=== PATIENT | female | born 1960 | race Caucasian/White ===

== ENCOUNTER 2024-08-04 18:12 | Emergency (ER) | payer MEDICAID, SELFPAY ==
[2024-08-04 18:36] VITALS: BP 126/79; PULSE 96; RESP 20; TEMP 37.9; O2SAT 94; BMI 21.0
--- NOTE | 2024-08-04 19:01 | XR_ITS ---
Examination: CT abdomen with intravenous contrast CT pelvis with intravenous contrast 2-D coronal reconstructions 2-D sagittal reconstructions Date and time of exam:August 04, 20241 hours INDICATIONS: Lower abdominal pain with blood in the stool today and beginning 6 days ago. CTDI: vol (mGy) 6.58 DLP: (mGycm) 333 Technique: Multiple axial sections of the abdomen and pelvis have been obtained. 64 slice high-resolution scanner used. 3 mm axial sections have been obtained, post intravenous injection of 60 cc of [id number] 2-D sagittal, coronal reconstructions obtained. Low dose protocols were performed. One or more of the following dose reduction techniques were used; automated exposure control, adjustment of the mA and/or KV according to patient size, use of iterative reconstruction technique. Findings: No focal liver or splenic lesions Absent gallbladder No pancreatic mass No renal or ureteral calculi, no hydronephrosis Abdominal aortic calcification no aneurysmal dilatation No pericecal inflammatory change No bowel obstruction No diverticulitis There is mild diffuse wall thickening involving the colon with rectal wall thickening Urinary bladder shows wall thickening The osseous structures are intact No pelvic mass IMPRESSION: Diffuse nonspecific colitis pattern, consider ulcerative colitis, Crohn's disease Proctitis pattern
--- NOTE | 2024-08-04 19:02 | EDRME_ITS ---
Rapid Medical Screening Exam [facility] Arrival date/time: 08/04/24 18:12 63F with history of COPD presents to ED with several days of lower ab pain and blood in stool. Patient was at [facility] recently with neg flu/COVID. Patient denies CP and URI symptoms. Chief Complaint: Nausea/Vomiting/Diarrhea Vital signs: Vital Signs Temperature 100.3 F 08/04/24 18:36 Pulse Rate 96 08/04/24 18:36 Respiratory Rate 20 08/04/24 18:36 Blood Pressure 126/79 08/04/24 18:36 Pulse Oximetry (%) 94 L 08/04/24 18:36 Oxygen Delivery Method Room Air 08/04/24 18:36
[2024-08-04 19:37] LABS: Collection Type, Urine Clean Catch; Squamous Epithelial Cell,Urine 0 /hpf (0-5); WBC,Urine 0 /hpf (0-5)
[2024-08-04 19:38] LABS: Lactate (Lactic Acid) 1.1 mMol/L (0.4-2.0)
[2024-08-04 19:41] LABS: Basophils % (Auto) 0 % (0-2.5); Eosinophils % (Auto) 0 % (0-10); Hematocrit 42.5 % (36.0-46.0); Hemoglobin 14.6 g/dL (12.0-16.0); Immature Granulocytes % (Auto) 0 % (0-0); Immature Granulocytes Auto 0.02 Thou/mm3 (0.00-0.00); Lymphocytes % (Auto) 25 % (10-50); Mean Corpuscular HGB Conc 34.4 g/dl (31.0-37.0); Mean Corpuscular Hemoglobin 32.2 pg (25.0-35.0); Mean Corpuscular Volume 94 fL (80-100); Monocytes # (Auto) 0.7 Thou/mm3 (0.0-0.8); Monocytes % (Auto) 9 % (0-12); Neutrophils # (Auto) 5.3 Thou/mm3 (1.8-7.7); Neutrophils % (Auto) 66 % (37-80); Nucleated Red Blood Cell % 0 /100 WBC (0); Platelet Count 244 Thou/mm3 (140-440); RDW Standard Deviation 45.7 fL (36.4-46.3); Red Blood Count 4.53 Miln/mm3 (4.00-5.20)
[2024-08-04 19:52] LABS: Bacteria,Urine Rare; Bilirubin,Urine Negative (Negative); Blood,Urine 1+ (Negative); Clarity,Urine Clear (Clear/Hazy); Color,Urine Yellow (Lt Yel-Yel); Glucose, Urine Negative (Negative); Ketones,Urine 2+ (Negative); Leukocyte Esterase,Urine Negative (Negative); Nitrite,Urine Negative (Negative); Protein,Urine 1+ (Neg - Trace); RBC,Urine 5 /hpf (0-3); Specific Gravity,Urine 1.027 (1.001-1.035); Urobilinogen,Urine Negative mg/dL (0.0-1.0)
[2024-08-04 20:07] LABS: Alanine Aminotransferase 16 U/L (10-49); Albumin, Serum 4.6 gm/dL (3.4-4.8); Albumin/Globulin Ratio 1.7 (1.2-2.2); Alkaline Phosphatase 71 U/L (46-116); Anion Gap 8 (7-16); Aspartate Amino Transferase 20 U/L (0-34); BUN/Creatinine Ratio 13 Ratio (12-20); Bilirubin,Total 0.3 mg/dL (0.3-1.2); Blood Urea Nitrogen 10 mg/dL (9-23); Calcium 9.4 mg/dL (8.3-10.6); Calcium (Corrected) 9.4 mg/dL (8.5-10.1); Carbon Dioxide 25.1 mMol/L (20.0-31.0); Chloride 100 mMol/L (98-107); Creatinine (Component) 0.8 mg/dL (0.6-1.3); Estimated Creatinine Clearance 58.4 mL/min (>60); Globulin 2.7 gm/dL (2.3-3.5); Glucose 102 mg/dL (74-106); Lipase 62 U/L (12-53); Osmolality,Calculated 265 (275-295); Potassium 4.1 mMol/L (3.4-5.1); Procalcitonin 0.08 ng/ml (0.0-0.49); Sodium 133 mMol/L (136-145); Total Protein 7.3 gm/dL (5.7-8.2); eGFR > 60 See Note
[2024-08-04 20:18] LABS: Amphetamine/Methamp Scrn,U Negative (Negative); Barbiturate Screen,Urine Negative (Negative); Benzodiazepines Screen,Urine Negative (Negative); Benzoylecgonine Screen, Ur Negative (Negative); Fentanyl Screen,Urine Negative (Negative); Opiate Screen,Urine Negative (Negative); THC Screen,Urine Positive (Negative)
--- NOTE | 2024-08-04 22:19 | EDNOTE_ITS ---
Nausea/Vomit./Diarrhea-RME/HPI General Chief complaint: Nausea/Vomiting/Diarrhea Stated complaint: Vomiting, blood in stool, [place] Arrival date/time: 08/04/24 18:12 RME / HPI RME / HPI Narrative: 08/04/24 18:12 63F with history of COPD presents to ED with several days of lower ab pain and blood in stool. Patient was at [facility] recently with neg flu/COVID. Patient denies CP and URI symptoms. ----- Dr. Pompa?s Main ED Evaluation: 63yo female presents to the ED for complaints of N/V and bloody stools. Patient states she's had persistent N/V for the last 6-7 days and has been constipated. She self-administered an enema, reporting afterwards she noticed she had bloody stools. She reports associated fevers and night sweats. She denies any abdominal pain or any other associated symptoms. She was seen at [facility] 1 week ago for similar symptoms. PSH includes hysterectomy and cholecystectomy. Denies any history of DM. She does smoke marijuana. Related Data Home Medications ?Medication ?Instructions ?Recorded ?Confirmed albuterol sulfate 90 mcg/actuation 2 puff inhalation Q ID ##18 04/15/17 09/03/19 aerosol inhaler (Ventolin HFA) atorvastatin 80 mg tablet 80 mg PO QDAY ##30 04/15/17 09/03/19 carvedilol 3.125 mg tablet (Coreg) 3.125 mg PO BID #0 tabs 04/15/17 09/03/19 clopidogrel 75 mg tablet (Plavix) 75 mg PO QDAY #0 tab s 04/15/17 09/03/19 isosorbide mononitrate 120 mg 120 mg PO QDAY ##0 04/1509/03/19 tablet,extended release 24 hr (Isosorbide Mononitrate ER) Previous Rx's ?Medication ?Instructions ?Recorded acetaminophen 650 mg 650 mg PO Q8H #60 tabs 08/09 tablet,extended release ibuprofen 600 mg tablet 600 mg PO Q6H #60 tabs 08/09 pantoprazole 40 mg tablet,delayed 40 mg PO QDAY #20 ta bs 08/25/23 release (Protonix) prednisone 50 mg tablet 50 mg PO QDAY #7 tabs ciprofloxacin HCl 500 mg tablet 500 mg PO BID 10 days #20 tabs 08/04/24 (Cipro) ondansetron 4 mg disintegrating 4 mg PO Q6H PRN nausea and 08/04/24 tablet vomiting #14 tabs Allergies Allergy/AdvReac Type Severity Reaction Status Date / Time adhesive tape Allergy Unknown Verified 08/25/23 12:51 Review of Systems Review of Systems Systems Reviewed: All systems reviewed, normal except as documented Narrative Review of Systems: Gen: + fever, no chills, no weight loss, + sweating EYES: No discharge, no visual changes, no pain HEENT: No ear pain, no congestion, no sore throat PULM: No shortness of breath, no cough, no congestion CV: No chest pain, no dyspnea on exertion, no palpitations GI: + nausea, + vomiting, no diarrhea, no pain, + constipation, + bloody stools : No frequency, no urgency, no dysuria Musc/skel: No joint pain, no back pain Skin: No rash. Warm and dry. Psyc: No hallucinations, no depression Heme/Lymph: No easy bleeding or bruising tendencies Neuro: No weakness, no headache Past Medical History Past Medical History CARDIAC: Positive Cardiac Disorders RESPIRATORY: Positive Asthma GENITOURINARY: Negative Renal Disease ENDOCRINE: Negative Diabetes Mellitus Type 2 HEMATOLOGIC: Negative Sickle Cell Disease Social History SMOKING STATUS: Current every day smoker ED Exam Narrative Physical exam: GENERAL APPEARANCE: alert and oriented x 4, well-developed, well-nourished, no acute distress VITALS: All vitals were reviewed and the pulse ox is 95% on room air, which is normal according to my interpretation. HEENT: Normocephalic, atraumatic; pupils equal, round, reactive to light; EOMI; mucous membranes pink, moist; oropharynx clear NECK: Supple LUNGS: CTABL; no wheezes, no rales, no rhonchi HEART: Regular rate, regular rhythm; normal S1, S2; no murmurs ABDOMEN: non distended; normal BS; soft, minimal diffuse tenderness, no guarding, no rebound; no masses, no organomegaly, no hernia BACK: no CVA tenderness EXTREMITIES: atraumatic; no edema NEUROLOGIC: awake; alert and oriented x4; cranial nerves II-XII grossly intact; no focal sensory or motor deficits PSYCHIATRIC: appropriate mood and affect SKIN: warm, dry, normal color; no rashes Course Quality Measures none Orders Category Date Time Status CT Screening NOW Care 08/04/24 19:02 Active Insert IV NOW Care 08/04/24 19:[address] abdomen pelvis w con Stat Exams 08/04/24 19:01 Completed CBC Stat Lab 08/04/24 19:19 Completed CMP [Comprehensive Metabolic Panel] Stat Lab 08/04/24 19:19 Completed Drug Screen,Urine Stat Lab 08/04/24 19:26 Completed Lactate (Lactic Acid) Stat Lab 08/04/24 19:19 Completed Lipase Stat Lab 08/04/24 19:19 Completed Procalcitonin Stat Lab 08/04/24 19:19 Completed UA [Urinalysis] Stat Lab 08/04/24 19:26 Completed DiphenhydrAMINE INJ [Benadryl Inj] Med 08/04/24 22:19 Discontinued 12.5 mg IVP X1 ONE Haloperidol Lactate [Haldol Inj] Med 08/04/24 22:19 Discontinued 2.5 mg IM X1 ONE Vital Signs Vital signs: Vital Signs Temperature 100.3 F 08/04/24 18:36 Pulse Rate 96 08/04/24 18:36 Respiratory Rate 20 08/04/24 18:36 Blood Pressure 126/79 08/04/24 18:36 Pulse Oximetry (%) 94 L 08/04/24 18:36 Oxygen Delivery Method Room Air 08/04/24 18:36 Nausea/Vomiting/Diarrhea MDM Narrative MDM Narrative:: Scribe Attestation: 08/04/24 - Sharyn Leary am scribing for and in the presence of Dr. Pompa. Patient data External records reviewed:: [facility] previous records (Per chart review, patient was seen here on 08/25/23 for epigastric pain.) Clinical information provided by:: patient Social determinants that could affect healthcare access:: substance use (smokes marijuana) Patient has the following chronic illnesses:: asthma How is presenting disease/condition affected by chronic disease/condition?: u neffected by Evaluation data The following diagnostics were reviewed and interpreted by me:: lab results and radiology exam(s) Lab and/or radiology exams considered but not ordered:: none Interpretation Summary: CBC is normal, Sodium is 133, Lipase is 62, Lactic Acid is normal, Procalcitonin is normal, UA is negative for a UTI, UDS is positive for marijuana, according to my interpretation. ------- [facility] [place] [facility] Report Signed Patient: AMARA BEY [facility]. Record#: [id number] Birthdate: 1960 Age/Sex: 63 / F Location: [facility] Attending Dr: Ordering Physician: Dominic Lawrence PA-C Date of Service: 08/04/24 Procedure(s): CT abdomen pelvis w con Accession Number(s): [id number] cc: Maykel Tejada MD; Tay Vallejo MD; Dominic Lawrence PA-C~ Examination: CT abdomen with intravenous contrast CT pelvis with intravenous contrast 2-D coronal reconstructions 2-D sagittal reconstructions Date and time of exam:August 04, 20242030 hours INDICATIONS: Lower abdominal pain with blood in the stool today and beginning 6 days ago. CTDI: vol (mGy) 6.58 DLP: (mGycm) 333 Technique: Multiple axial sections of the abdomen and pelvis have been obtained. 64 slice high-resolution scanner used. 3 mm axial sections have been obtained, post intravenous injection of 60 cc of Isovue-370 2-D sagittal, coronal reconstructions obtained. Low dose protocols were performed. One or more of the following dose reduction techniques were used; automated exposure control, adjustment of the mA and/or KV according to patient size, use of iterative reconstruction technique. Findings: No focal liver or splenic lesions Absent gallbladder No pancreatic mass No renal or ureteral calculi, no hydronephrosis Abdominal aortic calcification no aneurysmal dilatation No pericecal inflammatory change No bowel obstruction No diverticulitis There is mild diffuse wall thickening involving the colon with rectal wall thickening Urinary bladder shows wall thickening The osseous structures are intact No pelvic mass IMPRESSION: Diffuse nonspecific colitis pattern, consider ulcerative colitis, Crohn's disease Proctitis pattern Dictated By: Tay Vallejo MD Signed By: <Electronically signed by Tay Vallejo MD in OV> 08/04/24 9507 Medications / Prescriptions Medications / Prescriptions considered but not ordered:: none Medication administrations:: Medication Administration History Discontinued Medications Diphenhydramine HCl (Diphenhydramine Inj 50 Mg/Ml Vial) 12.5 mg IVP X1 ONE Stop: 08/04/24 22:20 Last Admin: 08/04/24 22:41 Dose: 12.5 mg Documented By: SMITH Haloperidol Lactate (Haloperidol Lact Inj 5 Mg/Ml Vial) 2.5 mg IM X1 ONE Stop: 08/04/24 22:20 Last Admin: 08/04/24 22:41 Dose: 2.5 mg Documented By: SMITH see above Consultations Consultation(s) initiated? (list below): No Diagnosis Nausea Differential Diagnosis: drug-induced nausea and vomiting and other (bacterial dysentery, viral gastroenteritis, gastroparesis) Most likely diagnosis given after review of the tests above:: see below Admission Indicated Admission indicated?: not indicated Admission Request Was there a request for admission?: No Disposition Plan Disposition Plan: Discharge Discharge Attestation Discharge Attestation: The patient and all family members were given an opportunity to ask questions and understood the discharge instructions. Discharge instructions specifically effects, indications for sooner follow up or return to the emergency department, and the expected course of current diagnosis. Patient condition: Stable Discharge Plan Plan Patient Disposition: HOME (Self Care) Prescriptions/Referrals Prescriptions/Med Rec: New ciprofloxacin HCl [Cipro] 500 mg tablet 500 mg PO BID 10 Days Qty: 20 0RF ondansetron 4 mg tablet,disintegrating 4 mg PO Q6H PRN (Reason: nausea and vomiting) Qty: 14 0RF No Action atorvastatin 80 mg Tablet 80 mg PO QDAY Qty: 30 clopidogrel [Plavix] 75 MG tablet 75 mg PO QDAY Qty: 0 carvedilol [Coreg] 3.125 MG tablet 3.125 mg PO BID Qty: 0 isosorbide mononitrate [Isosorbide Mononitrate ER] 120 MG tablet extended release 24 hr 120 mg PO QDAY Qty: 0 albuterol sulfate [Ventolin HFA] 200 PUFF/INH HFA aerosol inhaler 2 puff Inhalation QID Qty: 18 acetaminophen 650 mg tablet extended release 650 mg PO Q8H Qty: 60 0RF Rx Instructions: swallow whole; do not chew/break/dissolve/open ibuprofen 600 mg tablet 600 mg PO Q6H Qty: 60 0RF prednisone 50 mg tablet 50 mg PO QDAY Qty: 7 0RF pantoprazole [Protonix] 40 mg tablet,delayed release (DR/EC) 40 mg PO QDAY Qty: 20 0RF Referrals: Maykel Tejada MD [Primary Care Provider] - In 1 week Problem List Clinical Impression: Bacterial dysentery Patient/Caregiver Discharge Instructions Discharge Activity: activity as tolerated Diet Instructions: No restrictions Education Materials: ED Diarrhea, Bacterial (Adult) Additional Instructions: Please return to the emergency department if you have any worsening or any further medical problems Otherwise you should follow-up with your primary care doctor within the next several days You have 2 prescriptions waiting for you at your pharmacy. One of them is called ciprofloxacin. This is your antibiotic. You should take this twice per day for the entire 10 days even if you are feeling better before that. The other medicine is called ondansetron or Zofran. This is an antivomiting medicine. This medicine goes under the tongue and dissolves there. Print Language: Citizen [place] Stand Alone Forms: Glenda Award Info., Patient Portal Info Letter
[2024-08-04] MEDS: DiphenhydrAMINE INJ 50 MG/ML VIAL 12.5 MG IVP (22:41)
[2024-08-04] MEDS: HALOPERIDOL LACT INJ 5 MG/ML VIAL 2.5 MG IM (22:41)
== END 2024-08-04 22:50 | disposition home or self-care (01) ==
PROVIDERS: Physician Assistant; Emergency Provider Emergency Medicine; PCP Family Medicine; Referring Provider Emergency Medicine
DX: A09 Infectious gastroenteritis and colitis, unspecified (principal); J44.9 Chronic obstructive pulmonary disease, unspecified
CPT/HCPCS: 36415; 74177; 80053; 80307; 81001; 83605; 83690; 84145; 85025; 96372; 96374; 99285; A4649; J1200; J1630; Q9967

== ENCOUNTER 2025-03-14 21:32 | Inpatient (IN) | payer MEDICAID, SELFPAY ==
[2025-03-14 21:33] VITALS: BMI 21.2
--- NOTE | 2025-03-14 21:38 | PD.EDNEURO ---
Neuro Symptoms Deficit-RME/HPI General Chief Complaint: General Adult/Misc Complain Stated Complaint: R/O STROKE Time Seen by Provider: 03/14/25 21:38 Arrival date/time: 03/14/25 21:32 RME / HPI RME / HPI Narrative: See [facility] for Dr. Silva's HPI documentation. Related Data Home Medications ?Medication ?Instructions ?Recorded ?Confirmed albuterol sulfate 90 mcg/actuation 2 puff inhalation QID ##18 04/15/17 09/03/19 aerosol inhaler (Ventolin HFA) atorvastatin 80 mg tablet 80 mg PO QDAY ##30 04/15/17 09/03/19 carvedilol 3.125 mg tablet (Coreg) 3.125 mg PO BID #0 tabs 04/15/17 09/03/19 clopidogrel 75 mg tablet (Plavix) 75 mg PO QDAY #0 tabs 04/15/17 09/03/19 isosorbide mononitrate 120 mg 120 mg PO QDAY ##0 04/15/17 09/03/19 tablet,extended release 24 hr (Isosorbide Mononitrate ER) Previous Rx's ?Medication ?Instructions ?Recorded acetaminophen 650 mg 650 mg PO Q8H #60 tabs 08/09/18 tablet,extended release ibuprofen 600 mg tablet 600 mg PO Q6H #60 tabs 08/09/18 pantoprazole 40 mg tablet,delayed 40 mg PO QDAY #20 tabs 08/25/23 release (Protonix) prednisone 50 mg tablet 50 mg PO QDAY #7 tabs 08/25/23 ondansetron 4 mg disintegrating 4 mg PO Q6H PRN nausea and 08/04/24 tablet vomiting #14 tabs Allergies Allergy/AdvReac Type Severity Reaction Status Date / Time adhesive tape Allergy Unknown Verified 08/25/23 12:51 Review of Systems Review of Systems Systems Reviewed: All systems reviewed, normal except as documented Past Medical History Past Medical History CARDIAC: Positive Cardiac Disorders RESPIRATORY: Positive Asthma GENITOURINARY: Negative Renal Disease ENDOCRINE: Negative Diabetes Mellitus Type 2 HEMATOLOGIC: Negative Sickle Cell Disease Social History SMOKING STATUS: Current every day smoker ED Exam Narrative Physical exam: See [facility] for Dr. Silva's physical exam documentation. Course Course Course Narrative: 2132: Stroke alert initiated. Quality Measures none Orders Category Date Time Status Admit to Inpatient Status Routine Admission 03/15/25 00:03 Active Patient Condition Routine Admission 03/15/25 00:03 Ordered Aspiration precautions NOW Care 03/15/25 00:03 Active Bedside Blood Glucose NOW Care 03/14/25 21:39 Active COVID-19 Screening Questionnaire NOW Care 03/14/25 23:06 Active Marine Engineering Teacher NOW Care 03/14/25 21:39 Active Continuous Pulse Oximetry NOW Care 03/14/25 21:39 Completed Decision to Admit X1 Care 03/14/25 23:06 Completed EKG (ED ONLY) *Do not use* NOW Care 03/14/25 21:39 Completed Head of Bed Elevation NOW Care 03/15/25 00:03 Active Insert IV NOW Care 03/14/25 21:39 Active Miscellaneous Nursing Order NOW Care 03/15/25 00:03 Active Miscellaneous Nursing Order NOW Care 03/15/25 00:03 Active NIH Stroke Scale NOW Care 03/15/25 00:03 Active NIH Stroke Scale now Care 03/14/25 21:39 Active NPO NOW Care 03/14/25 21:39 Active NPO NOW Care 03/15/25 00:03 Active Neuro Check Q4H Care 03/15/25 00:03 Active Notify provider NEEDED Care 03/15/25 00:03 Active Nurse Swallow Screen X1 Care 03/15/25 00:03 Active Nurse Swallow Screen x1 Care 03/14/25 21:39 Active Obtain weight X1 Care 03/15/25 00:03 Active Vital Signs, Non-Routine Q4H Care 03/15/25 00:15 Ordered Vital Signs, Non-Routine Q4H Care 03/15/25 04:15 Ordered Consult to Gastroenterology Stat Cons 03/15/25 00:00 Ordered Consult to Neurology / Tele-Neurology Routine Cons 03/14/25 21:39 Active Consult to Neurology / Tele-Neurology Routine Cons 03/15/25 00:03 Active PT [Referral Physical Therapy] Routine Cons 03/15/25 00:03 Active Referral Speech Therapy Routine Cons 03/15/25 00:03 Active Diet NPO (NOW) Diet 03/15/25 00:03 Active CA echo doppler complete Stat Exams 03/15/25 00:[address] angio stroke protocol Stat Exams 03/14/25 21:[address] stroke protocol Stat Exams 03/14/25 21:39 Completed EKG (ED Only) Stat Exams 03/14/25 21:39 Draft MR stroke protocol brain wwo with MRA head and neck Exams 03/15/25 00:03 Ordered Stat XR chest 1V portable Stat Exams 03/14/25 21:39 Completed Alcohol, Blood Medical Stat Lab 03/14/25 21:47 Completed Arterial Blood Gas Stat Lab 03/14/25 22:30 Completed B-Type Natriuretic Peptide Stat Lab 03/14/25 21:47 Completed Bilirubin,Direct Stat Lab 03/14/25 21:47 Completed CBC AM DRAW Lab 03/15/25 05:00 Ordered CBC AM DRAW Lab 03/16/25 05:00 Ordered CBC AM DRAW Lab 03/17/25 05:00 Ordered CBC Stat Lab 03/14/25 21:47 Completed Comprehensive Metabolic Panel AM DRAW Lab 03/15/25 05:00 Ordered Comprehensive Metabolic Panel AM DRAW Lab 03/16/25 05:00 Ordered Comprehensive Metabolic Panel AM DRAW Lab 03/17/25 05:00 Ordered Comprehensive Metabolic Panel Stat Lab 03/14/25 21:47 Completed Drug Screen,Urine Stat Lab 03/14/25 23:35 Completed Glycohemoglobin w (eAG) AM DRAW Lab 03/15/25 05:00 Ordered Lipid Panel AM DRAW Lab 03/15/25 05:00 Ordered Magnesium AM DRAW Lab 03/15/25 05:00 Ordered Magnesium AM DRAW Lab 03/16/25 05:00 Ordered Magnesium AM DRAW Lab 03/17/25 05:00 Ordered Magnesium Stat Lab 03/14/25 21:47 Completed Partial Thromboplastin Time Stat Lab 03/14/25 21:47 Completed Phosphorous AM DRAW Lab 03/15/25 05:00 Ordered Phosphorous AM DRAW Lab 03/16/25 05:00 Ordered Phosphorous AM DRAW Lab 03/17/25 05:00 Ordered Prothrombin Time with INR Stat Lab 03/14/25 21:47 Completed TSH [Thyroid Stimulating Hormone] Stat Lab 03/14/25 21:47 Completed Thyroid Stimulating Hormone AM DRAW Lab 03/15/25 05:00 Ordered Troponin I Routine Lab 03/15/25 00:19 Completed Troponin I Stat Lab 03/14/25 21:47 Completed Urinalysis, C/S if Indicated Stat Lab 03/14/25 23:35 Completed Acetaminophen Tab [Tylenol Tab] Med 03/15/25 00:02 Active 650 mg PO Q6H PRN Acetaminophen Tab [Tylenol Tab] Med 03/15/25 00:02 Active 650 mg PO Q6H PRN Isosorbide Mononitrate [Imdur-Er] Med 03/15/25 09:00 Active 30 mg PO QDAY Morphine* Inj Med 03/15/25 00:02 Active 1 mg IVP Q4HR PRN Ondansetron Inj [Zofran Inj] Med 03/15/25 00:02 Active 4 mg IVP Q6H PRN Ondansetron Inj [Zofran Inj] Med 03/14/25 21:40 Discontinued 4 mg IVP X1 ONE Pantoprazole [Protonix] Med 03/15/25 09:00 Active 40 mg PO QDAY Senna [Senokot] Med 03/15/25 00:02 Active 1 tab PO QDAY PRN Sodium Chloride 0.9% 1000 ml [Ns] 1,000 ml Med 03/14/25 21:40 Discontinued IV 999 mls/hr oxyCODONE/APAP 5/325 [Percocet 5/325] Med 03/15/25 00:02 Active 1 tab PO Q6H PRN Code Status Routine Oth 03/15/25 00:02 Ordered Oxygen Delivery DAILY RT 03/15/25 00:03 Active Oxygen Delivery NOW RT 03/14/25 21:39 Active Vital Signs Vital signs: Vital Signs Temperature 97.9 F 03/14/25 21:50 Pulse Rate 67 03/14/25 21:50 Respiratory Rate 18 03/14/25 21:50 Blood Pressure 160/87 H 03/14/25 21:50 Pulse Oximetry (%) 96 03/14/25 21:50 Oxygen Delivery Method Room Air 03/14/25 21:50 Neuro Symptoms / Deficit MDM Narrative MDM Narrative:: This section includes all my notes and documentations, including HPI, PE, and ED course. Herrera Silva MD HPI: 64yo female with history of HTN BIB her son with right facial droop and slurred speech about 30 minutes ago. No visual impairment. Uncertain about weakness in the arms or legs. No numbness or tingling. No other complaints. ROS: All negative except as documented in HPI. Physical Exam: General: Alert and oriented. Appearance of malaise noted. Eyes: Conjunctivae and lids clear. PERRL. EOMI. ENT: No nasal congestion. Pharynx normal. TM normal bilaterally. Neck: Supple. No carotid bruit. No JVD. Heart: RRR. Lungs: No respiratory distress. Good air movement. No rhonchi, wheezing, rales. Abdomen: Soft and nontender. Skin: Warm and dry. Neuro: Alert and oriented X 3. Cranial nerves II through XII grossly normal except equivocal aphasia. No obvious peripheral motor deficits noted. I reviewed all diagnostic test results. My interpretation of the EKG is sinus rhythm with nonspecific ST-T changes. My interpretation of the chest x-ray is NAD. My review of the CT head report is NAD. My review of the CT angio head/neck report is NAD. Blood tests are unremarkable. ABG showed pH 7.40, pCO2 40, HCO3 25. UA unremarkable. UDS positive for fentanyl and benzodiazepine and marijuana. At this point, diagnoses include: Strokelike symptoms. I discussed the case with our teleneurologist. About the presentation and exam and diagnostics and treatments here. Recommend admission for further care. I discussed the case with our hospitalist. About the presentation and exam and diagnostics and treatments here. And need of further care in the hospital. Will accept the patient. Herrera Silva MD Patient data External records reviewed:: [facility] previous records (Per chart review, patient has no relevant previous ED visits.) Clinical information provided by:: patient and family Social determinants that could affect healthcare access:: substance use (tobacco use) Patient has the following chronic illnesses:: HTN, asthma How is presenting disease/condition affected by chronic disease/condition?: uneffected by Evaluation data The following diagnostics were reviewed and interpreted by me:: lab results, radiology exam(s) and EKG tracing(s) (My interpretation of the EKG is: Sinus rhythm (65 bpm) with nonspecific ST-T changes. Herrera Silva MD) Lab and/or radiology exams considered but not ordered:: none Interpretation Summary: I reviewed all diagnostic test results. My interpretation of the EKG is sinus rhythm with nonspecific ST-T changes. My interpretation of the chest x-ray is NAD. My review of the CT head report is NAD. My review of the CT angio head/neck report is NAD. Blood tests are unremarkable. ABG showed pH 7.40, pCO2 40, HCO3 25. UA unremarkable. UDS positive for fentanyl and benzodiazepine and marijuana. Medications / Prescriptions Medications or Prescriptions considered but not ordered:: none Medication administrations:: Medication Administration History Acetaminophen (Acetaminophen 325 Mg Tablet) 650 mg PO Q6H PRN PRN Reason: Fever >100.4 Stop: 04/14/25 00:01 Acetaminophen (Acetaminophen 325 Mg Tablet) 650 mg PO Q6H PRN PRN Reason: PAIN SCALE 1-3 (mild Stop: 04/14/25 00:01 Aspirin (Aspirin Ec 81 Mg Tabec) 81 mg PO QDAY [facility] Stop: 04/14/25 08:59 Clopidogrel Bisulfate (Clopidogrel Bisulfate 75 Mg Tablet) 75 mg PO QDAY [facility] Stop: 04/14/25 08:59 Heparin Sodium (Porcine) (Heparin Sod Inj 5000 Unit/Ml Vial) 5,000 unit SC Q12HR [facility] Stop: 03/29/25 08:59 Isosorbide Mononitrate (Isosorbide Er Mononitrate 30 Mg Tabcr) 30 mg PO QDAY [facility] Stop: 04/14/25 08:59 Morphine Sulfate (Morphine Sulf Inj 4 Mg/Ml Vial) 1 mg IVP Q4HR PRN PRN Reason: PAIN SCALE 7-10 (Severe Stop: 03/20/25 00:01 Nicotine (Nicotine Patch 14 Mg/24 Hr Patch.Td24) 14 mg TOP QDAY [facility] Stop: 04/14/25 08:59 Ondansetron HCl (Ondansetron Inj 2 Mg/Ml Inj 2 Ml) 4 mg IVP Q6H PRN; Protocol PRN Reason: NAUSEA OR VOMITING Stop: 04/14/25 00:01 Oxycodone/Acetaminophen (Oxycodone/Apap 5/325 Tablet) 1 tab PO Q6H PRN PRN Reason: PAIN SCALE 4-6 (Moderate Stop: 03/20/25 00:01 Pantoprazole Sodium (Pantoprazole 40 Mg Tablet) 40 mg PO QDAY [facility] Stop: 04/14/25 08:59 Sennosides (Senna Tablet) 1 tab PO QDAY PRN; Protocol PRN Reason: constipation Stop: 04/14/25 00:01 Discontinued Medications Aspirin (Aspirin Ec 81 Mg Tabec) 81 mg PO X1 ONE Stop: 03/15/25 00:59 Clopidogrel Bisulfate (Clopidogrel Bisulfate 75 Mg Tablet) 75 mg PO X1 ONE Stop: 03/15/25 00:59 Sodium Chloride (Ns) 1,000 mls @ 999 mls/hr IV .Q1H1M ONE Stop: 03/14/25 22:40 Last Infusion: 03/14/25 23:26 Dose: Infused Documented By: Admin: 03/14/25 22:15 Dose: 999 mls/hr Documented By: CVL Sodium Chloride (Ns) 1,000 mls @ 75 mls/hr IV .[id number] Stop: 04/14/25 00:14 Last Admin: 03/15/25 00:39 Dose: 75 mls/hr Documented By: CVL Ondansetron HCl (Ondansetron Inj 2 Mg/Ml Inj 2 Ml) 4 mg IVP X1 ONE; Protocol Stop: 03/14/25 21:41 Last Admin: 03/14/25 22:39 Dose: Not Given Documented By: CVL Non-Admin Reason: Change of Condition Treatment from in included IV fluid. Consultations Consultation(s) initiated? (list below): Yes Consultation #1 (Physician, Specialty, Details): I discussed the case with our teleneurologist. About the presentation and exam and diagnostics and treatments here. Recommended admission for further care. Consultation #2 (Physician, Specialty, Details): I discussed the case with our hospitalist. About the presentation and exam and diagnostics and treatments here. And need of further care in the hospital. Will accept the patient. Diagnosis Neuro Differential Diagnosis: delirium, subarachnoid hemorrhage, cerebrovascular accident and transient cerebral ischemia Most likely diagnosis given after review of the tests above:: Short leg symptoms. Admission Indicated Admission indicated?: indicated Explain why admission is indicated or not indicated:: I discussed the case with our teleneurologist. About the presentation and exam and diagnostics and treatments here. Recommended admission for further care. Admission Request Was there a request for admission?: Yes Admission Attestation Admission request attestation: Discussed case with Hospitalist service regarding admission. Discussed patients ED course, exam findings, labs, and radiology results. Agreed to accept the patient for admission. Disposition Plan Disposition Plan: Admit Discharge Plan Plan Patient Disposition: Admit Acute Care w/in Hospital Problem List Clinical Impression: Stroke-like symptoms
--- NOTE | 2025-03-14 21:38 | PC.NURSE ---
Case Consult 03/14/2025 21:38:30 [facility] Case # [id number] has been created.
--- NOTE | 2025-03-14 21:39 | EKG_ITS ---
[facility] Test Date: 2025-03-14 Pat Name: AMARA BEY Department: Room: - Gender: Female Corral Boss: : 1960 Requested By: Herrera Delarosa Order Number: [id number] Reading MD: Herrera Delarosa Measurements Intervals Joice Rate: 65 P: 67 OH: 157 QRS: 37 QRSD: 77 T: 11 QT: 390 QTc: 408 Interpretive Statements SINUS RHYTHM POSSIBLE LEFT ATRIAL ENLARGEMENT [-0.1mV P-WAVE IN V1/V2] SEPTAL MYOCARDIAL INFARCTION , OF INDETERMINATE AGE [40+ ms Q WAVE IN V1/V2] Compared to ECG 08/25/2023 13:11:18 Myocardial infarct finding now present /store/S0/[id number]/ecg/[id number].pdf
--- NOTE | 2025-03-14 21:39 | XR_ITS ---
Examination: CT brain head without contrast. 2-D sagittal coronal reconstructions Date and time of exam:March 17, 2025, 2148 hrs. Indications: Stroke alert, onset focal neurologic deficit today CTDI: vol (mGy):45.8 DLP: (mGycm):847 Technique: Multiple CT axial sections of the brain have been obtained, 5 mm slice thickness. Contrast has not been administered. 2-D sagittal, coronal reconstructions have been obtained Low dose protocols were performed. One or more of the following dose reduction techniques were used; automated exposure control, adjustment of the mA and/or KV according to patient size, use of iterative reconstruction technique. Findings: No significant ventricular enlargement. Old infarct right basal ganglia Intra-axial or extra-axial hemorrhage density is not seen. No mass effect or midline shift Basal cisterns are not remarkable. Fourth ventricle is midline. Cranial vault intact. Impression: Negative for acute hemorrhage, mass effect or midline shift
--- NOTE | 2025-03-14 21:39 | XR_ITS ---
Examination: AP chest single view Technique: AP portable upright chest single view Date and time: March 16, 2025, 10:39 PM Indications: Stroke alert, altered mental status today. Findings: Normal heart size. No aspiration pneumonia. Prominent osteopenia. Impression: No aspiration pneumonia.
--- NOTE | 2025-03-14 21:39 | XR_ITS ---
Examination: CTA carotids with intravenous contrast CTA brain, head with intravenous contrast. 2-D sagittal, coronal reconstructions. 3-D reconstructions. Exam date and time: March 14, 2012 2025, 2154 hrs. Indications: Stroke alert, onset focal neurologic deficit today CTDI: vol (mGy) 10.7 DLP: (mGycm) 403 Technique: Multiple CTA axial brain, head carotid images post intravenous contrast injection 75 cc, [id number]. 2-D sagittal, coronal reconstructions. 3-D reconstructions, 3-D post processing including vascular maximum intensity projection images. Low dose protocols were performed. One or more of the following dose reduction techniques were used; automated exposure control, adjustment of the mA and/or KV according to patient size, use of iterative reconstruction technique. Findings: Multiple right thyroid nodules, the largest 19 mm No significant common carotid carotid bifurcation or internal carotid artery stenoses. Codominant vertebral arteries in the neck with no critical stenoses No cerebral large vessel arterial occlusions or thrombus Impression: No significant neck arterial stenoses No cerebral large vessel arterial occlusions or thrombus
[2025-03-14 21:50] VITALS: BP 160/87; PULSE 67; PULSE 79; RESP 18; TEMP 36.6; O2SAT 96
[2025-03-14 22:05] LABS: Basophils # (Auto) 0.0 Thou/mm3 (0.0-0.2); Basophils % (Auto) 1 % (0-2.5); Eosinophils # (Auto) 0.2 Thou/mm3 (0.0-0.5); Eosinophils % (Auto) 3 % (0-10); Hematocrit 44.3 % (36.0-46.0); Hemoglobin 14.9 g/dL (12.0-16.0); Immature Granulocytes Auto 0.02 Thou/mm3 (0.00-0.00); Lymphocytes # (Auto) 3.7 Thou/mm3 (1.0-4.8); Lymphocytes % (Auto) 49 % (10-50); Mean Corpuscular HGB Conc 33.6 g/dl (31.0-37.0); Mean Corpuscular Hemoglobin 32.6 pg (25.0-35.0); Mean Corpuscular Volume 97 fL (80-100); Monocytes # (Auto) 0.5 Thou/mm3 (0.0-0.8); Monocytes % (Auto) 7 % (0-12); Neutrophils # (Auto) 3.0 Thou/mm3 (1.8-7.7); Neutrophils % (Auto) 40 % (37-80); Nucleated Red Blood Cell # 0.00 Thou/mm3 (0.00-0.00); Nucleated Red Blood Cell % 0 /100 WBC (0); Platelet Count 254 Thou/mm3 (140-440); RDW Standard Deviation 47.4 fL (36.4-46.3); Red Blood Count 4.57 Miln/mm3 (4.00-5.20); White Blood Count 7.6 Thou/mm3 (3.6-11.0)
[2025-03-14 22:07] VITALS: RESP 97
[2025-03-14 22:10] VITALS: BP 133/83; PULSE 66; RESP 17
[2025-03-14] MEDS: SODIUM CHLORIDE 0.9% 1000 ML 1,000 ML 999 ML IV (22:15)
[2025-03-14 22:22] LABS: INR 0.9 (0.9-1.3); Partial Thromboplastin Time 26.0 Seconds (22.0-36.0); Prothrombin Time 10.4 Seconds (9.0-12.2)
--- NOTE | 2025-03-14 22:26 | PD.TNEURO ---
Tele Neuro Consultation Consultation Date 03/14/25 Most Recent Vital Signs Last Vital Signs Temp 97.9 F 03/14/25 21:50 Pulse 66 03/14/25 22:10 Resp 17 03/14/25 22:10 BP 133/83 H 03/14/25 22:10 Pulse Ox 96 03/14/25 21:50 O2 Del Method Room Air 03/14/25 22:10 Laboratory-Coagulation Panel PT 10.4 Seconds (9.0-12.2) 03/14/25 21:47 INR 0.9 (0.9-1.3) 03/14/25 21:47 APTT 26.0 Seconds (22.0-36.0) 03/14/25 21:47 Consultation Narrative [facility] Patient Name:???Smiley Steen Date of :???1960 Identification Number:??? Date of Service:???03/14/2025 21:38:30 Diagnosis: ?I63.89 - Cerebrovascular accident (CVA) due to other mechanism ([facility]) Impression: ?64 yo F who presented for evaluation of acute onset of right facial weakness, slurred speech, and binocular diplopia. Her neurologic exam was only notable for minimal right facial weakness and right face/hemibody hypoesthesia. Overall, her presentation is concerning for possible acute stroke. After discussion regarding the risks/benefits and alternatives of thrombolytics, patient politely declined due to the low risk of bleeding/. CTA head/neck is pending to rule out LVO, though clinical suspicion for this is very low (will follow up and place addendum once results are reviewed). Assuming CTA is negative for LVO, will recommend continuation of home DAPT and admission for further stroke workup as discussed below. Our recommendations are outlined below. Recommendations: ? Stroke/Telemetry Floor ? Neuro Checks ? Bedside Swallow Eval ? DVT Prophylaxis ? IV Fluids, Normal Saline ? Head of Bed 30 Degrees ? Euglycemia and Avoid Hyperthermia (PRN Acetaminophen) ?If safe from GI perspective given recent colonoscopy, may continue home ASA and Plavix for secondary stroke prevention ?Routine MRI brain without contrast to evaluate for acute stroke ?CTA head/neck pending to rule out LVO and evaluate for large artery atherosclerotic disease ?TTE to assess for intracardiac abnormalities ?Telemetry to monitor for occult arrhythmias ?Lipid panel and hemoglobin A1c to assess for modifiable stroke risk factors ?PT/OT/DEHYDRATOR OPERATOR evaluations Sign Out: ? Discussed with Emergency Department Provider Advanced Imaging: Advanced imaging has been ordered. Results pending. Metrics: Last Known Well: 03/14/2025 21:00:00 Dispatch Time: 03/14/2025 21:38:30 Arrival Time: 03/14/2025 21:32:00 Initial Response Time: 03/14/2025 21:40:07Symptoms: right facial weakness, slurred speech and double vision . Initial patient interaction: 03/14/2025 22:02:00 NIHSS Assessment Completed: 03/14/2025 22:09:01Patient is not a candidate for Thrombolytic. Thrombolytic Medical Decision: 03/14/2025 22:09:59Patient was not deemed candidate for Thrombolytic because of following reasons: Patient/Family declined . CT Head: I personally reviewed all the CT images that were available to me and it showed: no acute hemorrhage or other acute process, though there was note of chronic right basal ganglia stroke Primary Provider Notified of Diagnostic Impression and Management Plan on: 03/14/2025 22:24:17 History of Present Illness:Patient is a 64 year old Female. Patient was brought by private transportation with symptoms of right facial weakness, slurred speech and double vision . Per family report, patient was last known normal around 9 PM this evening. Around that time, patient had just finished using the bathroom when family had noticed acute onset of right facial weakness and slurred speech. Patient had also told her son that she was having double vision as well. On arrival to the ED, her slurred speech improved, though she continued to have facial weakness and double vision. Review of systems was otherwise positive for colonoscopy this morning for cancer screening (unclear results or if they took any samples/biopsies). Patient denied any history of similar symptoms and further denied any associated headache, vision loss, or focal extremity numbness/weakness. Past Medical History: ?Hypertension ?Hyperlipidemia Other PMH:? COPD Medications: No Anticoagulant use? Antiplatelet use:?Yes?Plavix and ASA Reviewed EMR for current medications Allergies:? NKDA Social History: Smoking: Yes Family History: There is no family history of premature cerebrovascular disease pertinent to this consultation ROS : 14 Points Review of Systems was performed and was negative except mentioned in HPI. Past Surgical History: There Is No Surgical History Contributory To Today?s Visit Examination: BP(160/87),?Pulse(79),?Blood Glucose(128) 1A: Level of Consciousness - Alert; keenly responsive?+ 0 1B: Ask Month and Age - Both Questions Right?+ 0 1C: Blink Eyes & Squeeze Hands - Performs Both Tasks?+ 0 2: Test Horizontal Extraocular Movements - Normal?+ 0 3: Test Visual Sands - No Visual Loss?+ 0 4: Test Facial Palsy (Use Grimace if Obtunded) - Minor paralysis (flat nasolabial fold, smile asymmetry)?+ 1 5A: Test Left Arm Motor Drift - No Drift for 10 Seconds?+ 0 5B: Test Right Arm Motor Drift - No Drift for 10 Seconds?+ 0 6A: Test Left Leg Motor Drift - No Drift for 5 Seconds?+ 0 6B: Test Right Leg Motor Drift - No Drift for 5 Seconds?+ 0 7: Test Limb Ataxia (FNF/Heel-Mcnair) - No Ataxia?+ 0 8: Test Sensation - Mild-Moderate Loss: Less Sharp/More Dull?+ 1 9: Test Language/Aphasia - Normal; No aphasia?+ 0 10: Test Dysarthria - Normal?+ 0 11: Test Extinction/Inattention - No abnormality?+ 0 NIHSS Score:?2 NIHSS Free Text :?Right face and hemibody hypoesthesia Pre-Morbid Modified Berks Scale: 0 Points = No symptoms at all Spoke with :?Dr. Silva This consult was conducted in real time using interactive audio and video technology. Patient was informed of the technology being used for this visit and agreed to proceed. Patient located in hospital and provider located at home/office setting. Patient is being evaluated for possible acute neurologic impairment and high probability of imminent or life-threatening deterioration. I spent total of 40 minutes providing care to this patient, including time for face to face visit via telemedicine, review of medical records, imaging studies and discussion of findings with providers, the patient and/or family. Dr Omid Chapman [facility] For Inpatient follow-up with [facility] physician please call [facility] at . As we are not an outpatient service for any post hospital discharge needs please contact the hospital for assistance. If you have any questions for the [facility] physicians or need to reconsult for clinical or diagnostic changes please contact us via [facility] at .
[2025-03-14 22:27] LABS: B-Type Natriuretic Peptide 24 pg/mL (0-100)
[2025-03-14 22:29] LABS: Alanine Aminotransferase 20 U/L (10-49); Albumin, Serum 4.7 gm/dL (3.4-4.8); Albumin/Globulin Ratio 2.4 (1.2-2.2); Alcohol, Blood Medical < 3.0 mg/dL (0-10.0); Alkaline Phosphatase 78 U/L (46-116); Anion Gap 8 (7-16); Aspartate Amino Transferase 22 U/L (0-34); BUN/Creatinine Ratio 9 Ratio (12-20); Bilirubin,Direct 0.1 mg/dL (0.0-0.3); Bilirubin,Total 0.4 mg/dL (0.3-1.2); Blood Urea Nitrogen 7 mg/dL (9-23); Calcium 9.7 mg/dL (8.3-10.6); Calcium (Corrected) 9.7 mg/dL (8.5-10.1); Carbon Dioxide 26.5 mMol/L (20.0-31.0); Chloride 108 mMol/L (98-107); Creatinine (Component) 0.8 mg/dL (0.6-1.3); Estimated Creatinine Clearance 57.7 mL/min (>60); Globulin 2.0 gm/dL (2.3-3.5); Glucose 120 mg/dL (74-106); Magnesium 2.1 mg/dL (1.6-2.6); Osmolality,Calculated 282 (275-295); Potassium 3.5 mMol/L (3.4-5.1); Sodium 142 mMol/L (136-145); Thyroid Stimulating Hormone 1.11 uIU/mL (0.55-4.78); Total Protein 6.7 gm/dL (5.7-8.2); Troponin I < 0.020 ng/mL (0.0-0.045); eGFR > 60 See Note
[2025-03-14 22:33] LABS: Base Excess 0 (-3-3); HCO3 25 mEq/L (20-26); Inspired Oxygen, FIO2 21 %; O2 Saturation 93 % (91-98); PCO2 40 mmHg (32.0-48.0); PO2 61 mmHg (83-108); pH, Arterial 7.40 (7.35-7.45)
[2025-03-14 22:34] LABS: Allen Test Performed/OK; Puncture Site Right Radial
[2025-03-14 23:02] VITALS: BP 135/84; PULSE 58; RESP 18; O2SAT 95
[2025-03-14 23:33] VITALS: BP 156/94; PULSE 68; RESP 18; O2SAT 97
[2025-03-15] VITALS (10 sets, daily range): BP systolic 115–138; BP diastolic 74–81; PULSE 58–65; RESP 18–94; TEMP 35.7–36.7; O2SAT 93–96; BMI 23.0
--- NOTE | 2025-03-15 00:03 | ECHO_ITS ---
Transthoracic Echo Report Ht (in): 62 Wt (lb): 116 Exam Location: Echo Lab Status: Emergency Lath Hand: Claire Esposito Indications: Procedure Performed: BP: 115 / 74 HR: 63 MEASUREMENTS (Male / Female) Normal Values 2D ECHO LV Diastolic Diameter PLAX 3.9 cm 4.2 - 5.9 / 3.9 - 5.3 cm LV Systolic Diameter PLAX 2.5 cm IVS Diastolic Thickness 0.9 cm 0.6 - 1.0 / 0.6 - 0.9 cm LVPW Diastolic Thickness 1.0 cm 0.6 - 1.0 / 0.6 - 0.9 cm LV Relative Wall Thickness 0.5 LVOT Diameter 1.9 cm LA Volume Index 22.5 cm?/m? 16 - 28 cm?/m? Ascending Aorta Diameter 3.3 cm M-MODE AV Cusp Separation MM 1.2 cm DOPPLER AV Peak Velocity 132.0 cm/s AV Peak Gradient 7.0 mmHg AV Mean Gradient 3.0 mmHg AV Velocity Time Integral 29.1 cm LVOT Peak Velocity 99.4 cm/s LVOT Peak Gradient 4.0 mmHg LVOT Velocity Time Integral 23.3 cm LVOT Cardiac Index 2739.8 cm?/min?m? AV Area Cont Eq vti 2.3 cm? AV Area Cont Eq pk 2.1 cm? MV Area PHT 3.8 cm? Mitral E Point Velocity 67.1 cm/s Mitral A Point Velocity 76.4 cm/s Mitral E to A Ratio 0.9 LV E' Lateral Velocity 9.8 cm/s Mitral E to LV E' Lateral Ratio 6.9 LV E' Septal Velocity 7.2 cm/s Mitral E to LV E' Septal Ratio 9.3 TR Peak Velocity 247.3 cm/s TR Peak Gradient 24.5 mmHg PV Peak Velocity 118.0 cm/s PV Peak Gradient 5.6 mmHg FINDINGS Left Ventricle Normal left ventricular size, wall thickness, systolic function with no obvious regional wall motion abnormalities.There is grade I diastolic dysfunction of the left ventricle (impaired relaxation pattern). . The ejection fraction is visually estimated at 55-60 %. Right Ventricle The right ventricle is normal in size and systolic function. The estimated right ventricular systolic pressure, 34 mmHg with RAP 3 Left Atrium The left atrium is normal by two-dimensional, color flow and Doppler imaging with no structural abnormalities, no thrombus formation present. Right Atrium The right atrium is normal by two-dimensional imaging, color flow and Doppler imaging with no structural abnormalities, no thrombus formation present. Atrial Septum No patent foramen ovale demonstrated by agitated saline injection. Aorta The aorta is normal by two-dimensional, color flow and Doppler interrogation. Mitral Valve The mitral valve is normal by two-dimensional, color flow and Doppler interrogation. Trace to mild mitral regurgitation. Aortic Valve Aortic valve sclerosis without stenosis Tricuspid Valve The tricuspid valve is normal by two-dimensional, color flow and Doppler interrogation. There is mild tricuspid valve regurgitation. Pulmonic Valve The pulmonic valve is not well visualized. There is no significant pulmonic valve regurgitation. Vessels The pulmonary artery appears normal. The inferior vena cava pulmonary and hepatic veins appear normal. CONCLUSIONS Indication: Stroke/bubble study Normal left ventricular size and function. Estimated EF-60%. Normal right ventricular size and function. RVSP 34mmHg with RAP 3 No patent foramen ovale demonstrated by agitated saline injection. Negative bubble study Aortic valve sclerosis without stenosis Trace mitral and trace tricuspid regurgitation Betsy Bautista (Electronically Signed) Final Date: 15 March 2025 17:46
[2025-03-15 00:04] LABS: Collection Type, Urine Clean Catch
[2025-03-15 00:10] LABS: Bilirubin,Urine Negative (Negative); Blood,Urine Negative (Negative); Clarity,Urine Clear (Clear/Hazy); Color,Urine Colorless (Lt Yel-Yel); Culture Indicated,Urine Not Indicated; Glucose, Urine Negative (Negative); Ketones,Urine Negative (Negative); Leukocyte Esterase,Urine Negative (Negative); Nitrite,Urine Negative (Negative); PH,Urine 6.5 (5.0-7.0); Protein,Urine Negative (Neg - Trace); RBC,Urine 1 /hpf (0-3); Specific Gravity,Urine 1.039 (1.001-1.035); Squamous Epithelial Cell,Urine < 1 /hpf (0-5); Urobilinogen,Urine Negative mg/dL (0.0-1.0); WBC,Urine < 1 /hpf (0-5)
--- NOTE | 2025-03-15 00:13 | ESHP_ITS ---
<Statement entered by Dewayne Read MD - 03/15/25 02:43> I have discussed and was present for the essential components of the history, physical examination, diagnosis, and treatment plan with the resident. I agree with the patient's care as documented by the resident and amended herein by me. Dewayne Read MD FACP. Documentation for date of: 03/15/25 HPI History of Present Illness Chief complaint: Vision disturbance, confusion, dizziness History of present illness: 64F with CAD s/p stent (Carlos Beyer, 1 month ago), CHF, COPD, HTN, HLD, smoker, presented with sudden onset right facial droop, slurred speech, and visual distortion/diplopia at 21:00 on 03/14, now resolved. LKWT 21:00. She described distorted vision (tilted lines), facial asymmetry, and feeling ?off? in her head. No weakness elsewhere. No headache, chest pain, or palpitations. Chronic SOB from COPD. No recent infection. She had a colonoscopy earlier today in [place] and was instructed to hold ASA/Plavix for 3 days, which she has done. Mortician Helper: Carlos Beyer ED Course Patient arrived to ED 03/14/25 at 21:32 with acute right facial droop, slurred speech, and diplopia, LKWT 21:00. NIHSS [address] head negative for hemorrhage, CTA head/neck negative for LVO or stenosis. EKG showed sinus rhythm, automated read suggested septal infarct of undetermined age. Labs unremarkable including CBC, CMP, troponin, BNP, TSH, Mg. Teleneurology consulted, discussed risks/benefits of thrombolysis; patient declined tPA given low NIHSS and preference to avoid bleeding risk. Patient remained hemodynamically stable in the ED, symptoms resolved to baseline by the time of admission. ROS * General: No fevers, chills, weight loss. * Neuro: Transient right facial droop, slurred speech, diplopia; denies persistent weakness, seizures, LOC. * Cardiac: No chest pain, palpitations. * Pulm: Chronic SOB; no cough, hemoptysis. * GI: No abd pain, N/V, melena; colonoscopy today. * : No dysuria, hematuria. * MSK: No new weakness or pain. PMH * CAD s/p PCI with stent (Feb 2025) * CHF (EF unknown) * COPD * HTN * HLD Allergies * NKDA Medications (per patient, pending med rec) * ASA 81 mg (held for last 3 days) * Plavix 75 mg (held for last 3 days) * Atorvastatin * Ezetimibe * Carvedilol BID * Isosorbide * Vitamin Family History * Non-contributory Surgical History * PCI with stent (Feb 2025) * Hysterectomy * Cholecystectomy * Colonoscopy 03/14/25, [place] Social History * Lives with son and grandkids, independent baseline * Smokes 1 pack every 1?1.5 days * Denies EtOH * Occasional marijuana Exam Vital Signs Temp Pulse Resp BP Pulse Ox O2 Del Method 97.9 F 68 18 156/94 H 97 Room Air 03/14/25 21:50 03/14/25 23:33 03/14/25 23:33 03/14/25 23:33 03/14/25 23:33 03/14/25 23:33 Narrative Exam General: Alert, oriented ?3, NAD. Neuro: Speech fluent, no dysarthria; CN II?XII intact; symmetric strength UE/LE; sensation intact; facial droop resolved; NIHSS 0. HEENT: PERRL, EOMI, no nystagmus. Oropharynx clear. Cardiac: RRR, no murmurs. Pulm: Normal effort, clear to auscultation, no wheezes/crackles. Abdomen: Soft, NT/ND, normoactive BS. Extremities: No edema. Skin: Warm, dry, intact. Results: Labs 03/14/25 21:47 03/14/25 21:47 Labs: Short CBC 03/14/25 Range/Units 21:47 WBC 7.6 (3.6-11.0) Thou/mm3 Hgb 14.9 (12.0-16.0) g/dL Hct 44.3 (36.0-46.0) % Plt Count 254 (140-440) Thou/mm3 BMP 03/14/25 21:47 Sodium 142 Potassium 3.5 Chloride 108 H Carbon Dioxide 26.5 BUN 7 L Creatinine 0.8 Glucose 120 H Calcium 9.7 Cardiac Enzymes 03/14/25 Range/Units 21:47 Troponin I < 0.020 (0.0-0.045) ng/mL Liver Function 03/14/25 Range/Units 21:47 Total Bilirubin 0.4 (0.3-1.2) mg/dL Direct Bilirubin 0.1 (0.0-0.3) mg/dL AST 22 (0-34) U/L ALT 20 (10-49) U/L Alkaline Phosphatase 78 (46-116) U/L Albumin 4.7 (3.4-4.8) gm/dL Urine 03/14/25 Range/Units 23:35 Urine Color Colorless A (Lt Yel-Yel) Urine Clarity Clear (Clear/Hazy) Urine pH 6.5 (5.0-7.0) Ur Specific [place] 1.039 H (1.001-1.035) Urine Protein Negative (Neg - Trace) Urine Glucose (UA) Negative (Negative) ABG Interpretation ABG results: 03/14/25 22:30 ABG pH 7.40 ABG pCO2 40 ABG pO2 61 L ABG HCO3 25 ABG O2 Saturation 93 ABG Base Excess 0 Quality Measures Quality Measures VTE prophylaxis Medications Home Medications and Allergies Home Medications ?Medication ?Instructions ?Recorded ?Confirmed ?Type albuterol sulfate 90 mcg/actuation 2 puff inhalation Q ID ##[id number] 04/15/17 09/03/19 History aerosol inhaler (Ventolin HFA) atorvastatin 80 mg tablet 80 mg PO QDAY ##30 04/15/17 09/03/19 History carvedilol 3.125 mg tablet (Coreg) 3.125 mg PO BID #0 tabs 04/15/17 09/03/19 History clopidogrel 75 mg tablet (Plavix) 75 mg PO QDAY #0 tab s 04/15/17 09/03/19 History isosorbide mononitrate 120 mg 120 mg PO QDAY ##0 04/1509/03/19 History tablet,extended release 24 hr (Isosorbide Mononitrate ER) Allergies Allergy/AdvReac Type Severity Reaction Status Date / Time adhesive tape Allergy Unknown Verified 08/25/23 12:51 Visit Medications Acetaminophen (Acetaminophen 325 Mg Tablet) 650 mg PO Q6H PRN PRN Reason: Fever >100.4 Stop: 04/14/25 00:01 Acetaminophen (Acetaminophen 325 Mg Tablet) 650 mg PO Q6H PRN PRN Reason: PAIN SCALE 1-3 (mild Stop: 04/14/25 00:01 Heparin Sodium (Porcine) (Heparin Sod Inj 5000 Unit/Ml Vial) 5,000 unit SC Q12HR IQRA Stop: 03/29/25 08:59 Sodium Chloride (Ns) 1,000 mls @ 75 mls/hr IV .[id number] IQRA Stop: 04/14/25 00:14 Isosorbide Mononitrate (Isosorbide Er Mononitrate 30 Mg Tabcr) 30 mg PO QDAY IQRA Stop: 04/14/25 08:59 Morphine Sulfate (Morphine Sulf Inj 4 Mg/Ml Vial) 1 mg IVP Q4HR PRN PRN Reason: PAIN SCALE 7-10 (Severe Stop: 03/20/25 00:01 Nicotine (Nicotine Patch 14 Mg/24 Hr Patch.Td24) 14 mg TOP QDAY IQRA Stop: 04/14/25 08:59 Ondansetron HCl (Ondansetron Inj 2 Mg/Ml Inj 2 Ml) 4 mg IVP Q6H PRN; Protocol PRN Reason: NAUSEA OR VOMITING Stop: 04/14/25 00:01 Oxycodone/Acetaminophen (Oxycodone/Apap 5/325 Tablet) 1 tab PO Q6H PRN PRN Reason: PAIN SCALE 4-6 (Moderate Stop: 03/20/25 00:01 Pantoprazole Sodium (Pantoprazole 40 Mg Tablet) 40 mg PO QDAY IQRA Stop: 04/14/25 08:59 Sennosides (Senna Tablet) 1 tab PO QDAY PRN; Protocol PRN Reason: constipation Stop: 04/14/25 00:01 Discontinued Medications Sodium Chloride (Ns) 1,000 mls @ 999 mls/hr IV .Q1H1M ONE Stop: 03/14/25 22:40 Last Infusion: 03/14/25 23:26 Dose: Infused Ondansetron HCl (Ondansetron Inj 2 Mg/Ml Inj 2 Ml) 4 mg IVP X1 ONE; Protocol Stop: 03/14/25 21:41 Last Admin: 03/14/25 22:39 Dose: Not Given Assessment & Plan Plan 64F with CAD s/p stent (Carlos Beyer), CHF, COPD, HTN, HLD, smoker, admitted for transient right facial droop, dysarthria, and diplopia after holding ASA/Plavix for colonoscopy. Now resolved. CT/CTA negative for bleed/LVO. Concern for TIA vs minor ischemic stroke. # TIA vs minor ischemic stroke # Cerebrovascular accident due to other mechanism Transient symptoms, CT/CTA negative. Likely embolic event in the setting of recent PCI and interruption of DAPT. Colonoscopy today showed only hemorrhoids. GI reportedly advised the patient to continue holding ASA/Plavix for an additional 3 days However, given her high thrombotic risk and new neurologic symptoms, a detailed risk?benefit discussion was held (thrombus/stroke vs GI bleed). Patient understood and agreed to resume DAPT. Plan: * Admit Stroke/Telemetry floor * Neuro checks q4h * MRI brain w/o contrast * TTE with bubble study * Telemetry monitoring * Lipid panel, HgbA1c * PT/OT eval * Resume ASA 81 mg & Plavix 75 mg tonight * Permissive HTN unless SBP >220 or DBP >120 # CAD s/p PCI with stent Feb 2025 Recent PCI (Yovani Beyeralia) with mandatory DAPT requirement. At very high risk for stent thrombosis given 3-day interruption. No chest pain or ischemic changes in ED. Plan: * Resume ASA/Plavix as above * Continue statin, BB, nitrate after med rec returns * Monitor for angina # CHF EF unknown, on carvedilol and isosorbide. No acute decompensation. Plan: * Continue home regimen after med rec * Monitor volume status # COPD Stable chronic SOB, no acute exacerbation. Active smoker. Plan: * Continue inhalers after med rec * Maintain O2 sat >88% * Smoking cessation counseling # HTN Chronic HTN. Presenting BP 176/87, later 135/84. Permissive hypertension in acute stroke. Plan: * Hold antihypertensives unless SBP >220/DBP >120 * Resume home meds after neuro clearance # HLD On atorvastatin, ezetimibe. Plan: * Continue after med rec # Tobacco use Active smoker, ~1 pack/day. Ongoing risk for vascular disease progression. Plan: * Counseling * Nicotine patch ordered Health Maintenance: DVT prophylaxis: SQ heparin 5000u q12h GI prophylaxis: PPI Diet: NPO until swallow eval passed Code status: Full code ----- Plan discussed with attending physician Dr. Jacek Hines MD PGY-1 Internal Medicine
[2025-03-15 00:20] LABS: Amphetamine/Methamp Scrn,U Negative (Negative); Barbiturate Screen,Urine Negative (Negative); Benzodiazepines Screen,Urine Positive (Negative); Benzoylecgonine Screen, Ur Negative (Negative); Fentanyl Screen,Urine Positive (Negative); Opiate Screen,Urine Negative (Negative); THC Screen,Urine Positive (Negative)
[2025-03-15] MEDS: SODIUM CHLORIDE 0.9% 1000 ML 1,000 ML 75 ML IV (00:39)
[2025-03-15 00:45] LABS: Troponin I < 0.002 ng/mL (0.0-0.045)
[2025-03-15] MEDS: CLOPIDOGREL BISULFATE 75 MG TABLET PO ×2 (01:49→09:07)
[2025-03-15] MEDS: ASPIRIN EC 81 MG TABEC PO ×2 (01:50→09:07)
--- NOTE | 2025-03-15 02:51 | PC.NURSE ---
REPORT GIVEN TO YURIDIA RALPH AT [facility].
[2025-03-15 05:55] LABS: Basophils # (Auto) 0.0 Thou/mm3 (0.0-0.2); Basophils % (Auto) 1 % (0-2.5); Eosinophils # (Auto) 0.2 Thou/mm3 (0.0-0.5); Eosinophils % (Auto) 3 % (0-10); Hematocrit 40.9 % (36.0-46.0); Hemoglobin 14.0 g/dL (12.0-16.0); Immature Granulocytes Auto 0.01 Thou/mm3 (0.00-0.00); Lymphocytes # (Auto) 3.0 Thou/mm3 (1.0-4.8); Lymphocytes % (Auto) 50 % (10-50); Mean Corpuscular HGB Conc 34.2 g/dl (31.0-37.0); Mean Corpuscular Hemoglobin 33.4 pg (25.0-35.0); Mean Corpuscular Volume 98 fL (80-100); Monocytes # (Auto) 0.4 Thou/mm3 (0.0-0.8); Monocytes % (Auto) 7 % (0-12); Neutrophils # (Auto) 2.4 Thou/mm3 (1.8-7.7); Neutrophils % (Auto) 39 % (37-80); Nucleated Red Blood Cell # 0.00 Thou/mm3 (0.00-0.00); Nucleated Red Blood Cell % 0 /100 WBC (0); Platelet Count 247 Thou/mm3 (140-440); RDW Standard Deviation 47.8 fL (36.4-46.3); Red Blood Count 4.19 Miln/mm3 (4.00-5.20); White Blood Count 6.1 Thou/mm3 (3.6-11.0)
[2025-03-15 06:17] LABS: Glucose Estimated Average 108 mg/dL (80-131); Hemoglobin A1C 5.4 % Hgb (4.8-6.0)
[2025-03-15 06:32] LABS: Alanine Aminotransferase 15 U/L (10-49); Albumin, Serum 3.9 gm/dL (3.4-4.8); Albumin/Globulin Ratio 2.1 (1.2-2.2); Alkaline Phosphatase 64 U/L (46-116); Anion Gap 7 (7-16); Aspartate Amino Transferase 16 U/L (0-34); BUN/Creatinine Ratio 7 Ratio (12-20); Bilirubin,Total 0.6 mg/dL (0.3-1.2); Blood Urea Nitrogen < 5 mg/dL (9-23); Calcium 9.0 mg/dL (8.3-10.6); Calcium (Corrected) 9.1 mg/dL (8.5-10.1); Carbon Dioxide 27.0 mMol/L (20.0-31.0); Cardiac Risk Estimate 3.2 RATIO (3.7-5.6); Chloride 111 mMol/L (98-107); Cholesterol 133 mg/dL (132-200); Creatinine (Component) 0.7 mg/dL (0.6-1.3); Estimated Creatinine Clearance 65.9 mL/min (>60); Globulin 1.9 gm/dL (2.3-3.5); Glucose 91 mg/dL (74-106); HDL Cholesterol 42 mg/dL (40-60); LDL Cholesterol,Calculated 80 mg/dL (0-130); Magnesium 2.0 mg/dL (1.6-2.6); Osmolality,Calculated 285 (275-295); Phosphorous 3.4 mg/dL (2.4-5.1); Potassium 3.7 mMol/L (3.4-5.1); Sodium 145 mMol/L (136-145); Total Protein 5.8 gm/dL (5.7-8.2); Triglycerides 54 mg/dL (30-150); eGFR > 60 See Note
[2025-03-15 06:50] LABS: Thyroid Stimulating Hormone 0.51 uIU/mL (0.55-4.78)
[2025-03-15] MEDS: NICOTINE PATCH 14 MG/24 HR PATCH.TD24 TOP (09:07)
[2025-03-15] MEDS: ISOSORBIDE ER MONONITRATE 30 MG TABCR PO (09:07)
[2025-03-15] MEDS: PANTOPRAZOLE 40 MG TABLET PO (09:07)
[2025-03-15] MEDS: HEPARIN SOD INJ 5000 UNIT/ML VIAL SC (09:08)
--- NOTE | 2025-03-15 10:21 | PC.SS ---
Patient Smiley Steen is a 64 Year old female admitted for Stroke R/O. SS contacted patient's son, Graham Steen who he reports patient lives with him at home with his family. Graham reports he is patient's surrogate decision maker, [phone]. Prior to being admitted patient did not utilize any source of DME to assist with ambulation. Patient is able to complete all ADL's independently. Choice of pharmacy is [facility]. PCP is Duncan Ndiaye in [place]. At time of discharge patient's son will provide transportation. Discharge plan: Home Next of kin: Son, Graham Steen
--- NOTE | 2025-03-15 13:58 | PC.PT ---
PT eval only. Patient was xI with bed mobility, transfers, and ambulation with no AD. Patient is safe to ambulate to the bathroom and in the halls with no AD and no staff. RN made aware.
--- NOTE | 2025-03-15 14:03 | ESPR_ITS ---
<Statement entered by Maggie Cartagena MD - 03/15/25 14:31> Patient admitted for CVA workup. Workup including CT head/CTA head neck negative. She was examined at bedside with no new neurologic deficits noted. Right facial droop has resolved. MRI head is pending her medical records to make sure that stent is compatible with MRI machine. She is agitated and eager to leave. Continue aspirin, plavix, and atorvastatin. A1c 5.4, labs unremarkable, vitals are stable. Resume anti hypertensives this evening. Echo and PT are pending. The patient's management plan was discussed with my attending physician Dr. Maggie Cartagena, PGY-2 Documentation for date of: 03/15/25 Subjective Subjective Interval history: This is a 64 yof with h/o CAD with stents placed on 02/[address] Romano at [facility], COPD, CHF, HTN, HLD, and chronic cigarette use who presented to ED on 03/15 around midnight with right facial droop, diploplia, and blurred vision. Symptoms resolved spontaneously and patient states she feels totally normal. She had a colonoscopy in [place] earlier that same day, and she was instructed to stop her DAPT for 3 days prior to that procedure. Today she feels totally normal and wants to leave without waiting for additional testing. MRI pending due to stents done on 02/26, MRI protocol per [facility] dictates 6-8 weeks prior to MRI scan. Attempting to reach out obtain [facility] records where she had her stent placed. Echo with bubble study done. Aspirin and plavix restarted. Restarted atorvastatin. Exam Vital Signs Temp Pulse Resp BP Pulse Ox O2 Del Method O2 Flow Rate 96.2 F L 62 22 H 115/74 96 Room Air 1 03/15/25 11:48 03/15/25 11:48 03/15/25 11:48 03/15/25 11:48 03/15/25 11:48 03/15/25 11:48 03/15/25 11:46 Narrative Exam General: Patient appears older than stated age, thin, somewhat antsy. HEENT: No JVD noted. Mucosa moist. Pupils are equal and reactive to light bilaterally Cardiovascular: Normal S1 and S2. Regular rate and rhythm. No murmur appreciated Respiratory: Clear to auscultation bilaterally without wheezes or crackles. Abdomen: Soft, nontender, not distended, Skin: Dry, no rashes or bruising Musculoskeletal: No gross injuries. Able to move all 4 extremities. Non edematous lower extremities. Neuro: Alert and oriented x3. CN grossly intact. No deficits in strenght or sensation in the upper or lower extremites bilaterally. Negative heel to burnett test and pronator drift. Psych: appears mildly agitated and antsy. Objective Labs 03/15/25 04:26 03/15/25 04:26 Labs: Laboratory Results - last 24 hr 03/14/25 03/14/25 03/14/25 21:47 22:30 23:35 WBC 7.6 RBC 4.57 Hgb 14.9 Hct 44.3 MCV 97 MCH 32.6 MCHC 33.6 RDW Std Deviation 47.4 H Plt Count 254 Neut % (Auto) 40 Lymph % (Auto) 49 Winkler % (Auto) 7 Eos % (Auto) 3 Baso % (Auto) 1 Neut # (Auto) 3.0 Lymph # (Auto) 3.7 Winkler # (Auto) 0.5 Eos # (Auto) 0.2 Baso # (Auto) 0.0 Immature Gran # (Auto) 0.02 H Absolute Nucleated RBC 0.00 Immature Gran % 0 Nucleated RBC % 0 PT 10.4 INR 0.9 APTT 26.0 Puncture Site Right Radial ABG pH 7.40 ABG pCO2 40 ABG pO2 61 L ABG HCO3 25 ABG O2 Saturation 93 ABG Base Excess 0 FiO2 21 Sodium 142 Potassium 3.5 Chloride 108 H Carbon Dioxide 26.5 Anion Gap 8 BUN 7 L Creatinine 0.8 Estim Creat Clear Calc 57.7 L eGFR > 60 BUN/Creatinine Ratio 9 L Glucose [address] Glu mg/dL Hemoglobin A1c Calculated Osmolality 282 Calcium 9.7 Corrected Calcium 9.7 Phosphorus Magnesium 2.1 Total Bilirubin 0.4 Direct Bilirubin 0.1 AST 22 ALT 20 Alkaline Phosphatase 78 Troponin I < 0.020 B-Natriuretic Peptide 24 Total Protein 6.7 Albumin 4.7 Globulin 2.0 L Albumin/Globulin Ratio 2.4 H Triglycerides Cholesterol LDL Cholesterol, Calc HDL Cholesterol Cholesterol/HDL Ratio TSH 1.11 Ur Collection Type Clean Catch Urine Color Colorless A Urine Clarity Clear Urine pH 6.5 Ur Specific [place] 1.039 H Urine Protein Negative Urine Glucose (UA) Negative Urine Ketones Negative Urine Blood Negative Urine Nitrite Negative Urine Bilirubin Negative Urine Urobilinogen (Auto) Negative Ur Leukocyte Esterase Negative Urine RBC 1 Urine WBC < 1 Ur Squamous Epith Cells < 1 Urine Bacteria None Ur Culture Indicated? Not Indicated Urine Opiates Screen Negative Urine Fentanyl Screen Positive A Ur Barbiturates Screen Negative U Amphetamin/Meth Scrn Negative U Benzodiazepines Scrn Positive A U Cocaine Metab Screen Negative U Marijuana (THC) Screen Positive A Ethyl Alcohol < 3.0 03/15/25 03/15/25 00:19 04:26 WBC 6.1 RBC 4.19 Hgb 14.0 Hct 40.9 MCV 98 MCH 33.4 MCHC 34.2 RDW Std Deviation 47.8 H Plt Count 247 Neut % (Auto) 39 Lymph % (Auto) 50 Winkler % (Auto) 7 Eos % (Auto) 3 Baso % (Auto) 1 Neut # (Auto) 2.4 Lymph # (Auto) 3.0 Winkler # (Auto) 0.4 Eos # (Auto) 0.2 Baso # (Auto) 0.0 Immature Gran # (Auto) 0.01 H Absolute Nucleated RBC 0.00 Immature Gran % 0 Nucleated RBC % 0 PT INR APTT Puncture Site ABG pH ABG pCO2 ABG pO2 ABG HCO3 ABG O2 Saturation ABG Base Excess FiO2 Sodium 145 Potassium 3.7 Chloride 111 H Carbon Dioxide 27.0 Anion Gap 7 BUN < 5 L Creatinine 0.7 Estim Creat Clear Calc 65.9 eGFR > 60 BUN/Creatinine Ratio 7 L Glucose [address] Glu mg/dL 108 Hemoglobin A1c 5.4 Calculated Osmolality 285 Calcium 9.0 Corrected Calcium 9.1 Phosphorus 3.4 Magnesium 2.0 Total Bilirubin 0.6 Direct Bilirubin AST 16 ALT 15 Alkaline Phosphatase 64 Troponin I < 0.002 B-Natriuretic Peptide Total Protein 5.8 Albumin 3.9 D Globulin 1.9 L Albumin/Globulin Ratio 2.1 Triglycerides 54 Cholesterol 133 LDL Cholesterol, Calc 80 HDL Cholesterol 42 Cholesterol/HDL Ratio 3.2 L TSH 0.51 L Ur Collection Type Urine Color Urine Clarity Urine pH Ur Specific [place] Urine Protein Urine Glucose (UA) Urine Ketones Urine Blood Urine Nitrite Urine Bilirubin Urine Urobilinogen (Auto) Ur Leukocyte Esterase Urine RBC Urine WBC Ur Squamous Epith Cells Urine Bacteria Ur Culture Indicated? Urine Opiates Screen Urine Fentanyl Screen Ur Barbiturates Screen U Amphetamin/Meth Scrn U Benzodiazepines Scrn U Cocaine Metab Screen U Marijuana (THC) Screen Ethyl Alcohol ABG Interpretation ABG results: 03/14/25 22:30 ABG pH 7.40 ABG pCO2 40 ABG pO2 61 L ABG HCO3 25 ABG O2 Saturation 93 ABG Base Excess 0 Quality Measures Quality Measures VTE prophylaxis Assessment & Plan Assessment Current Active Medications: Generic Name Dose Route Start Last Admin Trade Name Freq PRN Reason Stop Dose Admin Acetaminophen 650 mg 03/15/25 00:02 Acetaminophen 325 Mg Tablet PO 04/14/25 00:01 Q6H PRN Fever >100.4 Acetaminophen 650 mg 03/15/25 00:02 Acetaminophen 325 Mg Tablet PO 04/14/25 00:01 Q6H PRN PAIN SCALE 1-3 (mild Aspirin 81 mg 03/15/25 09:00 03/15/25 09:07 Aspirin Ec 81 Mg Tabec PO 04/14/25 08:59 81 mg QDAY IQRA Administration Atorvastatin Calcium 80 mg 03/15/25 21:00 Atorvastatin Calcium 20 Mg Tablet PO 04/14/25 20:59 HS IQRA Clopidogrel Bisulfate 75 mg 03/15/25 09:00 03/15/25 09:07 Clopidogrel Bisulfate 75 Mg Tablet PO 04/14/25 08:59 75 mg QDAY IQRA Administration Heparin Sodium (Porcine) 5,000 unit 03/15/25 09:00 03/15/25 09:08 Heparin Sod Inj 5000 Unit/Ml Vial SC 03/29/25 08:59 5,000 unit Q12HR IQRA Administration Isosorbide Mononitrate 30 mg 03/15/25 09:00 03/15/25 09:07 Isosorbide Er Mononitrate 30 Mg Tabcr PO 04/14/25 08:59 30 mg QDAY IQRA Administration Morphine Sulfate 1 mg 03/15/25 00:02 Morphine Sulf Inj 4 Mg/Ml Vial IVP 03/20/25 00:01 Q4HR PRN PAIN SCALE 7-10 (Severe Nicotine 14 mg 03/15/25 09:00 03/15/25 09:07 Nicotine Patch 14 Mg/24 Hr Patch.Td24 TOP 04/14/25 08:59 14 mg QDAY IQRA Administration Ondansetron HCl 4 mg 03/15/25 00:02 Ondansetron Inj 2 Mg/Ml Inj 2 Ml IVP 04/14/25 00:01 Q6H PRN NAUSEA OR VOMITING Protocol Oxycodone/Acetaminophen 1 tab 03/15/25 00:02 Oxycodone/Apap 5/325 Tablet PO 03/20/25 00:01 Q6H PRN PAIN SCALE 4-6 (Moderate Pantoprazole Sodium 40 mg 03/15/25 09:00 03/15/25 09:07 Pantoprazole 40 Mg Tablet PO 04/14/25 08:59 40 mg QDAY IQRA Administration Sennosides 1 tab 03/15/25 00:02 Senna Tablet PO 04/14/25 00:01 QDAY PRN constipation Protocol Plan 64F with CAD s/p stent (Carlos Beyer), CHF, COPD, HTN, HLD, smoker, admitted for transient right facial droop, dysarthria, and diplopia after holding ASA/Plavix for colonoscopy. Now resolved. CT/CTA negative for bleed/LVO. Concern for TIA vs minor ischemic stroke. # TIA vs minor ischemic stroke # Cerebrovascular accident due to other mechanism Transient symptoms, CT/CTA negative. Likely embolic event in the setting of recent PCI and interruption of DAPT. Colonoscopy today showed only hemorrhoids. GI reportedly advised the patient to continue holding ASA/Plavix for an additional 3 days However, given her high thrombotic risk and new neurologic symptoms, a detailed risk?benefit discussion was held (thrombus/stroke vs GI bleed). Patient understood and agreed to resume DAPT. A1c 5.4, lipid panel showed LDL 80, restarted atorvastatin. - Admit Stroke/Telemetry floor -Neuro checks q4h -MRI brain w/o contrast pending due to stents being placed on 02/16. Working on getting records from [facility] to determine stent equipment processor. -TTE with bubble study pending results. -Telemetry monitoring, no afib seen. -Lipid panel, -PT/OT eval -Permissive HTN unless SBP >220 or DBP >120 # CAD s/p PCI with stent Feb 2025 Recent PCI (Carlos Beyer) with mandatory DAPT requirement. At very high risk for stent thrombosis given 3-day interruption. No chest pain or ischemic changes in ED. - Resume ASA/Plavix as above - Continue statin, BB, nitrate after med rec returns - Monitor for angina # CHF EF unknown, on carvedilol and isosorbide. No acute decompensation. -Home regimen continued - Monitor volume status # COPD Stable chronic SOB, no acute exacerbation. Active smoker. -Continue inhalers after med rec -Maintain O2 sat >88% -Smoking cessation counseling # HTN Chronic HTN. Presenting BP 176/87, later 135/84. Permissive hypertension in acute stroke. - Hold antihypertensives unless SBP >220/DBP >120 - Resume home meds after neuro clearance # HLD On atorvastatin, ezetimibe. -Continue after med rec # Tobacco use Active smoker, ~1 pack/day. Ongoing risk for vascular disease progression. -Counseling -Nicotine patch Health Maintenance: DVT prophylaxis: SQ heparin 5000u q12h GI prophylaxis: PPI Diet: NPO until swallow eval passed Code status: Full code Patient's plan and care discussed with my attending, DO Chai Thomas DO PGY-1 ([facility] Resident) Attending Provider Attestation/Addendum I have discussed and was present for the essential components of the history, physical examination, diagnosis, and treatment plan with the resident. I agree with the patient's care as documented by the resident and amended herein by me. Gonzalo Charles DO. Although this document has been carefully reviewed, there may still be some phonetic and other typographical errors. These errors are purely grammatical due to imperfections in the software program and should not be construed in any way to compromise the substance of the patient's medical care during this visit. Patient seen and evaluated this AM. Patient feels well, no subjective complaints this morning, she states she wants to go home however she does have the MRI pending and echo pending. Considering the patient's stent was recently placed, MRI compatibility unknown hence we will have to get records from ED. Patient already on dual antiplatelet therapy and statin, will resume home meds as appropriate. Neurology consulted, appreciate recommendations
--- NOTE | 2025-03-15 14:08 | PD.RESCONSUL ---
HPI Data of Consult Requesting Physician: Tutu Charles DO Admitting Provider: Dewayne Read MD Attending Provider: Tutu Charles DO Primary Care Provider: TYRON Hull Consult Narrative Reason for consult: stroke w/up History of present illness: This 64F with CAD s/p stent (Yovani Beyeralia, 1 month ago), CHF, COPD, HTN, HLD, smoker, presented with sudden onset right facial droop, slurred speech, and visual distortion/diplopia at 21:00 on 03/14, now resolved. LKWT 21:00. She described distorted vision (tilted lines), facial asymmetry, and feeling ?off? in her head. No weakness elsewhere. No headache, chest pain, or palpitations. Chronic SOB from COPD. No recent infection. She had a colonoscopy earlier today in [place] and was instructed to hold ASA/Plavix for 3 days, which she has done. ED Course Patient arrived to ED 03/14/25 at 21:32 with acute right facial droop, slurred speech, and diplopia, LKWT 21:00. NIHSS [address] head negative for hemorrhage, CTA head/neck negative for LVO or stenosis. EKG showed sinus rhythm, automated read suggested septal infarct of undetermined age. Labs unremarkable including CBC, CMP, troponin, BNP, TSH, Mg. Teleneurology consulted, discussed risks/benefits of thrombolysis; patient declined tPA given low NIHSS and preference to avoid bleeding risk.Patient remained hemodynamically stable in the ED, symptoms resolved to baseline by the time of admission. PMH: CAD s/p PCI with stent (Feb 2025),CHF (EF unknown),COPD,HTN,HLD Surgical History: PCI with stent (Feb 2025), Hysterectomy, Cholecystectomy, Colonoscopy 03/14/25, [place] Allergies: NKDA Family History :Non-contributory Social History: Lives with son and grandkids, independent baseline. Smokes 1 pack every 1?1.5 days .Denies EtOH. Occasional marijuana Home meds: ASA 81 mg (held for last 3 days),Plavix 75 mg (held for last 3 days),Atorvastatin,Ezetimibe,Carvedilol BID, Isosorbide Vitamin 03/15/25: Patient was seen and examined at the bedside. Patient presented with acute facial droop on right side, slurred speech and diplopia. She was within the window of tPA however preferred to avoid due to bleeding risk. Aspirin and Plavix was held for 3 days due to colonoscopy in [place]. Awaiting MRI brain and echo. cc:: cc: Tutu Charles DO Review of Systems Review of Systems Systems Reviewed: All systems reviewed, normal except as documented Past Medical History Past Medical History CARDIAC: Positive Cardiac Disorders RESPIRATORY: Positive Asthma GENITOURINARY: Negative Renal Disease ENDOCRINE: Negative Diabetes Mellitus Type 2 HEMATOLOGIC: Negative Sickle Cell Disease Social History SMOKING STATUS: Current every day smoker Exam Vital Signs Temp Pulse Resp BP Pulse Ox O2 Del Method O2 Flow Rate 96.2 F L 62 22 H 115/74 96 Room Air 1 03/15/25 11:48 03/15/25 11:48 03/15/25 11:48 03/15/25 11:48 03/15/25 11:48 03/15/25 11:48 03/15/25 11:46 Narrative Exam GENERAL APPEARANCE: AxOx4, generally well-appearing female in no acute distress. HEENT: NC, AT. MMM. EOMI, clear conjunctiva, oropharynx clear. NECK: Supple without lymphadenopathy. No stiffness or restricted ROM. HEART: Normal rate and regular rhythm, normal S1/S2, no m/r/g LUNGS: CTAB, moving air well. No crackles or wheezes are heard. ABDOMEN: Soft, nontender, nondistended with good bowel sounds heard. BACK: No CVAT, no obvious deformity. EXTREMITIES: Without cyanosis, clubbing or edema. NEUROLOGICAL: Grossly nonfocal. Alert and oriented, moving all 4 extremities. Facial droop resolved. CN not formally tested but appear grossly intact. Observed to ambulate with normal gait. NIHSS is: 0 Skin: Warm and dry without any rash. Psych: Appropriate mood and affect Results Labs 03/15/25 04:26 03/15/25 04:26 Labs: Short CBC 03/14/25 03/15/25 Range/Units 21:47 04:26 WBC 7.6 6.1 (3.6-11.0) Thou/mm3 Hgb 14.9 14.0 (12.0-16.0) g/dL Hct 44.3 40.9 (36.0-46.0) % Plt Count 254 247 (140-440) Thou/mm3 BMP 03/14/25 03/15/25 21:47 04:26 Sodium 142 145 Potassium 3.5 3.7 Chloride 108 H 111 H Carbon Dioxide 26.5 27.0 BUN 7 L < 5 L Creatinine 0.8 0.7 Glucose 120 H 91 Calcium 9.7 9.0 Cardiac Enzymes 03/14/25 03/15/25 Range/Units 21:47 00:19 Troponin I < 0.020 < 0.002 (0.0-0.045) ng/mL Liver Function 03/14/25 03/15/25 Range/Units 21:47 04:26 Total Bilirubin 0.4 0.6 (0.3-1.2) mg/dL Direct Bilirubin 0.1 (0.0-0.3) mg/dL AST 22 16 (0-34) U/L ALT 20 15 (10-49) U/L Alkaline Phosphatase 78 64 (46-116) U/L Albumin 4.7 3.9 D (3.4-4.8) gm/dL Urine 03/14/25 Range/Units 23:35 Urine Color Colorless A (Lt Yel-Yel) Urine Clarity Clear (Clear/Hazy) Urine pH 6.5 (5.0-7.0) Ur Specific [place] 1.039 H (1.001-1.035) Urine Protein Negative (Neg - Trace) Urine Glucose (UA) Negative (Negative) ABG Interpretation ABG results: 03/14/25 22:30 ABG pH 7.40 ABG pCO2 40 ABG pO2 61 L ABG HCO3 25 ABG O2 Saturation 93 ABG Base Excess 0 Quality Measures Quality Measures VTE prophylaxis (Heparin subcut) Medications Home Medications and Allergies Home Medications ?Medication ?Instructions ?Recorded ?Confirmed ?Type albuterol sulfate 90 mcg/actuation 2 puff inhalation QID ##18 04/15/17 09/03/19 History aerosol inhaler (Ventolin HFA) atorvastatin 80 mg tablet 80 mg PO QDAY ##30 04/15/17 09/03/19 History carvedilol 3.125 mg tablet (Coreg) 3.125 mg PO BID #0 tabs 04/15/17 09/03/19 History clopidogrel 75 mg tablet (Plavix) 75 mg PO QDAY #0 tabs 04/15/17 09/03/19 History isosorbide mononitrate 120 mg 120 mg PO QDAY ##0 04/15/17 09/03/19 History tablet,extended release 24 hr (Isosorbide Mononitrate ER) Allergies Allergy/AdvReac Type Severity Reaction Status Date / Time adhesive tape Allergy Unknown Verified 08/25/23 12:51 Visit Medications Acetaminophen (Acetaminophen 325 Mg Tablet) 650 mg PO Q6H PRN PRN Reason: Fever >100.4 Stop: 04/14/25 00:01 Acetaminophen (Acetaminophen 325 Mg Tablet) 650 mg PO Q6H PRN PRN Reason: PAIN SCALE 1-3 (mild Stop: 04/14/25 00:01 Aspirin (Aspirin Ec 81 Mg Tabec) 81 mg PO QDAY [facility] Stop: 04/14/25 08:59 Last Admin: 03/15/25 09:07 Dose: 81 mg Atorvastatin Calcium (Atorvastatin Calcium 20 Mg Tablet) 80 mg PO HS [facility] Stop: 04/14/25 20:59 Clopidogrel Bisulfate (Clopidogrel Bisulfate 75 Mg Tablet) 75 mg PO QDAY [facility] Stop: 04/14/25 08:59 Last Admin: 03/15/25 09:07 Dose: 75 mg Heparin Sodium (Porcine) (Heparin Sod Inj 5000 Unit/Ml Vial) 5,000 unit SC Q12HR [facility] Stop: 03/29/25 08:59 Last Admin: 03/15/25 09:08 Dose: 5,000 unit Isosorbide Mononitrate (Isosorbide Er Mononitrate 30 Mg Tabcr) 30 mg PO QDAY [facility] Stop: 04/14/25 08:59 Last Admin: 03/15/25 09:07 Dose: 30 mg Morphine Sulfate (Morphine Sulf Inj 4 Mg/Ml Vial) 1 mg IVP Q4HR PRN PRN Reason: PAIN SCALE 7-10 (Severe Stop: 03/20/25 00:01 Nicotine (Nicotine Patch 14 Mg/24 Hr Patch.Td24) 14 mg TOP QDAY [facility] Stop: 04/14/25 08:59 Last Admin: 03/15/25 09:07 Dose: 14 mg Ondansetron HCl (Ondansetron Inj 2 Mg/Ml Inj 2 Ml) 4 mg IVP Q6H PRN; Protocol PRN Reason: NAUSEA OR VOMITING Stop: 04/14/25 00:01 Oxycodone/Acetaminophen (Oxycodone/Apap 5/325 Tablet) 1 tab PO Q6H PRN PRN Reason: PAIN SCALE 4-6 (Moderate Stop: 03/20/25 00:01 Pantoprazole Sodium (Pantoprazole 40 Mg Tablet) 40 mg PO QDAY IQRA Stop: 04/14/25 08:59 Last Admin: 03/15/25 09:07 Dose: 40 mg Sennosides (Senna Tablet) 1 tab PO QDAY PRN; Protocol PRN Reason: constipation Stop: 04/14/25 00:01 Discontinued Medications Aspirin (Aspirin Ec 81 Mg Tabec) 81 mg PO X1 ONE Stop: 03/15/25 00:59 Last Admin: 03/15/25 01:50 Dose: 81 mg Clopidogrel Bisulfate (Clopidogrel Bisulfate 75 Mg Tablet) 75 mg PO X1 ONE Stop: 03/15/25 00:59 Last Admin: 03/15/25 01:49 Dose: 75 mg Sodium Chloride (Ns) 1,000 mls @ 999 mls/hr IV .Q1H1M ONE Stop: 03/14/25 22:40 Last Infusion: 03/14/25 23:26 Dose: Infused Sodium Chloride (Ns) 1,000 mls @ 75 mls/hr IV .[id number] IQRA Stop: 04/14/25 00:14 Last Admin: 03/15/25 00:39 Dose: 75 mls/hr Ondansetron HCl (Ondansetron Inj 2 Mg/Ml Inj 2 Ml) 4 mg IVP X1 ONE; Protocol Stop: 03/14/25 21:41 Last Admin: 03/14/25 22:39 Dose: Not Given Assessment & Plan Plan 64F with CAD s/p stent (Yovani Beyeralia), CHF, COPD, HTN, HLD, smoker, admitted for transient right facial droop, dysarthria, and diplopia after holding ASA/Plavix for colonoscopy. Now resolved. CT/CTA negative for bleed/LVO. Concern for TIA vs minor ischemic stroke. # TIA vs minor ischemic stroke # Cerebrovascular accident due to other mechanism Transient symptoms, CT/CTA negative. Likely embolic event in the setting of recent PCI and interruption of DAPT. Colonoscopy today showed only hemorrhoids. GI reportedly advised the patient to continue holding ASA/Plavix for an additional 3 days However, given her high thrombotic risk and new neurologic symptoms, a detailed risk?benefit discussion was held (thrombus/stroke vs GI bleed). Patient understood and agreed to resume DAPT. U tox positive for fentanyl, benzodiazepine and marijuana. TSH: 0.51, LDL 80, cholesterol 133, triglyceride 54, troponin I negative, A1c 5.4 MRI brain showed Plan: Cont ASA 81 mg & Plavix 75 mg F/U with MRI brain w/o contrast and TTE with bubble study PT/OT eval Neuro checks q4h # CAD s/p PCI with stent Feb 2025 Recent PCI (Dr. Horn [place]) with mandatory DAPT requirement. # CHF # COPD # HTN # HLD # Tobacco use Rest of the management as per primary care team. Plan of care discussed with neurologist, Dr Toni Soliman MD, PGY 3
--- NOTE | 2025-03-15 14:51 | PC.NURSE ---
Notified Dr Cartagena that pt wants to leave AMA, Pt alert and oriented x4 education given, Md will come to bedside and speak with pt
--- NOTE | 2025-03-15 15:00 | PC.SS ---
SS follow up note; Patient is pending a MRI and Echo. Patient will discharge home when medically cleared.
--- NOTE | 2025-03-15 15:42 | EVENTNT_ITS ---
<Statement entered by Maggie Cartagena MD - 03/15/25 18:25> Nursing called team around 3 PM stating that patient wanted to leave AMA. We spoke with patient stating the risks of leaving before medical clearance/discharge. Patient had the opportunity to ask questions about their condition which were answered to their satisfaction; she is aware that they may return for further care at any time as needed. She was alert and oriented x 3 and expressed full understanding of this. Stated that she still wanted to leave before completing full workup including evaluation by neurology team as well. Patient signed AMA form with nurse present at bedside. Patient plan of care was discussed with the attending physician, Dr. Charles. Maggie Cartagena, PGY2 Documentation for date of: 03/15/25 Event Note Event Note: Received a call from the nurse that pt was wanting to leave AMI. Stated that if she can't get her MRI done today, she wants to go home and return to the hospital once she can get the MRI done. There was a delay because she had stents placed on 02/26 which was not compatible with the 6 week waiting protocol given to the MRI technicians from the manufacturers. Explained why the MRI was delayed, and why it was included in her workup. Risks of leaving AMA, including recurrent stroke, disability, paralysis, or were explained to the patient at bedside and the patient demonstrated clear understanding. She has a follow up with her PCP in the coming days and she is was restarted on DAPT for her stents. Patient left AMA in stable condition. Patient's plan and care discussed with my attending, DO Chai Thomas DO PGY-1 ([facility] Resident)
== END 2025-03-15 15:27 | disposition left against medical advice (07) | DRG 58 ==
LOC: SERX 22:58 → SERHOLD 03-15 00:45 → S2NX 03-15 02:57
PROVIDERS: Admitting Provider Internal Medicine; Emergency Provider Emergency Medicine; PCP Nurse Practitioner Family; Visit Provider Student in an Organized Health Care Education/Training Program
DX: R29.810 Facial weakness (principal); R47.81 Slurred speech; F17.210 Nicotine dependence, cigarettes, uncomplicated; I11.0 Hypertensive heart disease with heart failure; I50.9 Heart failure, unspecified; E78.5 Hyperlipidemia, unspecified; J44.9 Chronic obstructive pulmonary disease, unspecified; R29.702 NIHSS score 2; I25.10 Atherosclerotic heart disease of native coronary artery without angina pectoris; F12.90 Cannabis use, unspecified, uncomplicated; H53.2 Diplopia; Z95.5 Presence of coronary angioplasty implant and graft; K64.9 Unspecified hemorrhoids; Z53.29 Procedure and treatment not carried out because of patient's decision for other reasons; Z71.6 Tobacco abuse counseling; Z79.02 Long term (current) use of antithrombotics/antiplatelets; J44.89 Other specified chronic obstructive pulmonary disease; Z79.899 Other long term (current) drug therapy
CPT/HCPCS: 36415; 36600; 70450; 70496; 70498; 71045; 80053; 80061; 80307; 80320; 81001; 82248; 82803; 83036; 83735; 83880; 84100; 84443; 84484; 85025; 85610; 85730; 92610; 93005; 93306; 96360; 97161; 99285; A4649; J1644; J7030; Q9967; A9270; G0480